=== PATIENT | female | born 1950 | race Caucasian/White ===

== ENCOUNTER 2018-11-25 09:35 | Outpatient (CLI) | payer OTHER | END 2018-11-25 09:47 | disposition home or self-care (01) | LOC: SONOGRAMA 09:35 | DX: E04.2 Nontoxic multinodular goiter (principal) ==

== ENCOUNTER 2020-09-21 08:53 | Outpatient (CLI) | payer OTHER | END 2020-09-21 09:09 | disposition home or self-care (01) | LOC: NUCLEAR 08:53 → EDSEX 08:53 → NUCLEAR 09:09 | PROVIDERS: ATTEND Internal Medicine Hematology & Oncology | DX: C61 Malignant neoplasm of prostate (principal); C83.04 Small cell B-cell lymphoma, lymph nodes of axilla and upper limb | CPT/HCPCS: 78815; A9552 ==

== ENCOUNTER 2021-05-23 09:08 | Outpatient (CLI) | payer OTHER | END 2021-05-23 09:12 | disposition home or self-care (01) | LOC: RX STUDY 09:08 | PROVIDERS: ATTEND Internal Medicine Gastroenterology | DX: R13.19 Other dysphagia (principal); K44.9 Diaphragmatic hernia without obstruction or gangrene ==

== ENCOUNTER 2021-10-17 07:12 | Outpatient (CLI) | payer OTHER | END 2021-10-17 08:01 | disposition home or self-care (01) | LOC: NUCLEAR 07:12 | PROVIDERS: ATTEND Internal Medicine Hematology & Oncology | DX: C83.04 Small cell B-cell lymphoma, lymph nodes of axilla and upper limb (principal); C61 Malignant neoplasm of prostate | CPT/HCPCS: 78815; A9552 ==

== ENCOUNTER 2022-05-11 22:55 | Emergency (ER) | payer OTHER ==
[~2022-05-11] VITALS: Ht 167.6 cm; Wt 58.5 kg
[2022-05-11] MEDS ORDERED: ATORVASTATIN CA20 MG PO (23:22)
[2022-05-11] MEDS ORDERED: JARDIANCE10 MG PO (23:22)
[2022-05-11] MEDS ORDERED: GLIMEPIRIDE4 M1 PO (23:23)
[2022-05-11] MEDS ORDERED: PLAVIX75 MG PO (23:23)
[2022-05-11] MEDS ORDERED: CILOSTAZOL100 MG PO (23:24)
[2022-05-11] MEDS ORDERED: PEPCID AC20 MG PO (23:24)
[2022-05-11] MEDS ORDERED: REGLAN5 MG/5 ML (23:24)
[2022-05-11] MEDS ORDERED: GRALISE600 MG PO (23:24)
[2022-05-11] MEDS ORDERED: TOPROL XL50 M1 PO (23:25)
[2022-05-11] MEDS ORDERED: VENCLEXTA100 MG PO (23:25)
== END 2022-05-12 00:40 | disposition home or self-care (01) ==
LOC: ER 22:55
DX: U07.1 COVID-19 (principal); Z88.0 Allergy status to penicillin; I10 Essential (primary) hypertension; Z85.9 Personal history of malignant neoplasm, unspecified